=== PATIENT | male | born 1970 | race Caucasian/White ===

== ENCOUNTER 2019-04-18 11:19 | Emergency (ER) | payer BC ==
--- NOTE | 2019-04-18 13:13 | EDM.PDOC ---
ED HPI GENERAL MEDICAL PROBLEM - General Chief Complaint: Eye Problems Stated Complaint: EYE IRRITATION,POSS SOMETHING IN EYE Time Seen by Provider: 04/18/19 13:00 Source of Information: Reports: Patient, Family History Limitations: Reports: No Limitations - History of Present Illness INITIAL COMMENTS - FREE TEXT/NARRATIVE: 48-year-old male presents to the ED with a diffusely erythematous left conjunctiva for the last week. States his daughter had pinkeye about 3 weeks ago and got better after 4 days of they believe Cipro ophthalmic drops. He's been using these the last 2 days without any relief. The eye is crusted and stuck shut in the morning and he has to wipe away mucus several times during the day as it blurs his visual field in the left eye. He feels a foreign body sensation in the eye particularly up underneath his left eyelid. Symptoms started about a week ago. No associated upper respiratory tract infection. States the eyes not excessively tearful. Does not excessively photosensitive to light but is mildly so. He ascribes the discomfort as a bit of a burning discomfort versus an itch. Onset: Gradual Onset Date: 04/11/19 Duration: Day(s):, Constant, Getting Worse Location: Reports: Face Quality: Reports: Ache (Left, high involving the conjunctiva.), Burning, Other ( Diffuse erythema with exudate right eye for a week) Severity: Moderate Improves with: Reports: None Worsens with: Reports: None Context: Reports: Sick Contact (Possibly. His daughter had pinkeye 3 weeks ago.) . Denies: Activity, Exercise, Lifting, Trauma, Other Associated Symptoms: Denies: No Other Symptoms, Confusion, Chest Pain, Cough, cough w sputum, Diaphoresis, Fever/Chills, Headaches, Loss of Appetite, Malaise , Nausea/Vomiting, Shortness of Breath, Syncope Treatments WRAPPER CASHIER: Reports: Other (see below) (None.) - Related Data Allergies Allergy/AdvReac Type Severity Reaction Status Date / Time ragweed pollen Allergy Cannot Verified 04/18/19 11:44 Remember Home Meds: Home Meds Gentamicin [Garamycin 0.3% Ophth Soln] 5 ml EYEBOTH TID #1 bottle 04/18/19 [Rx] Lisinopril 20 mg PO DAILY 04/18/19 [History] Meloxicam 15 mg PO DAILY 04/18/19 [History] Metoprolol Tartrate 50 mg PO DAILY 04/18/19 [History] Metoprolol Tartrate 100 mg PO BEDTIME 04/18/19 [History] Omeprazole 40 mg PO DAILY 04/18/19 [History] Past Medical History Cardiovascular History: Reports: High Cholesterol, Hypertension Gastrointestinal History: Reports: GERD Musculoskeletal History: Reports: Arthritis Social & Family History - Tobacco Use Smoking Status *Q: Never Smoker - Caffeine Use Caffeine Use: Reports: Coffee, Soda - Recreational Drug Use Recreational Drug Use: No - Living Situation & Occupation Living situation: Reports: Occupation: Employed ED ROS ENT - Review of Systems Review Of Systems: See Below Constitutional: Denies: Fever, Chills, Malaise, Weakness, Fatigue, Decreased Appetite, Weight Loss HEENT: Reports: Eye Discharge (Left), Eye Pain. Denies: Contact Lenses, Glasses Respiratory: Reports: No Symptoms ( left for the last week) Cardiovascular: Reports: No Symptoms Endocrine: Reports: No Symptoms GI/Abdominal: Reports: No Symptoms : Reports: No Symptoms Musculoskeletal: Reports: Other Skin: Reports: No Symptoms (Has arthritis.) Neurological: Reports: No Symptoms Psychiatric: Reports: No Symptoms ED EXAM, ENT - Physical Exam Exam: See Below Exam Limited By: No Limitations General Appearance: Alert, WD/WN, No Apparent Distress, Other (Left eye is obviously very erythematous i.e. the conjunctivae severely injected.) Eye Exam: Left Eye: Conjunctival Injection (Severe. Nothing on the right side), Normal Fundi, Bilateral Eye: Corneal Abrasion (Slit-lamp examination reveals no corneal abrasion on the left side), Periorbital Changes (No periorbital changes. ), PERRL, Other (Does have some mucopurulent discharge medial canthus of the eye yellowish in color.) Ears: Normal TMs Nose: Normal Inspection Mouth/Throat: Normal Inspection, Normal Gums, Normal Teeth Head: Atraumatic, Normocephalic Course - Vital Signs Last Recorded V/S: Last Vital Signs Temp Pulse 71 04/18/19 11:36 Resp 18 04/18/19 11:36 BP 164/96 H 04/18/19 11:36 Pulse Ox 99 04/18/19 11:36 - Radiology Interpretation Free Text/Narrative:: 48-year-old male presents to the ED with a diffusely erythematous left eye for the last week. States he feels like there is something up underneath his left upper eyelid i.e. foreign body sensation but can't recollect getting anything in his eye. His daughter had pinkeye and improved with 4 days of op thalamic drops about 3 weeks ago. He's been using these drops which we believe are Cipro for the last 2 days without any improvement. He states the eye is usually mucopurulent and crusted shut in the mornings when he awakens. It is not excessively tearful but is mildly sensitive to light. It's more of the pressure up under the eyelid that bothers him the most. I did invert the upper eyelid and no foreign bodies were identified but he has a cobblestoning appearance of the upper eyelid due to inflammation. Similarly slit lamp exam revealed a normal cornea with known dendritic changes or foreign bodies identified. Appears to be a conjunctivitis. It's unclear whether or not this could be adenovirus infection although is usually spreads to the other eye fairly quickly. Plan I'm going to place the patient on Garamycin ophthalmic drops 2 drops to the left eye 4 times daily for the next 4 days. If not markedly improved he requires follow-up with an press room supervisor or environmental analyst. More or less clarify that his infection is indeed viral in origin. There is clinically no evidence of glaucoma. Departure - Departure Time of Disposition: 13:10 Disposition: Home, Self-Care 01 Condition: Fair Clinical Impression: Bacterial conjunctivitis of left eye - Discharge Information *PRESCRIPTION DRUG MONITORING PROGRAM REVIEWED*: Not Applicable *COPY OF PRESCRIPTION DRUG MONITORING REPORT IN PATIENT ELISHA: Not Applicable Prescriptions: Gentamicin [Garamycin 0.3% Oph Soln] 5 ml EYEBOTH TID #1 bottle Instructions: Bacterial Conjunctivitis, [id number] Referrals: Gayla Rojas PA-C [Primary Care Provider] - Forms: ED Department Discharge Additional Instructions: Evaluation in the emergency room today in regards to red eye on the left side for the last week. Excessive discharge with iron added in the mornings. Daughter had pinkeye 3 weeks ago. Examination with slit lamp shows no corneal abrasions and no foreign bodies in the eye. Appears to be a infection either from viral or bacterial origin. Since her so much debris and discharge from the eye I would be suspicious that it is bacterial in origin. Suggest treatment to be Garamycin antibiotic eyedrops--2 drops to the left eye 4 times daily for the next 4 days to clear up infection. If not better then follow-up is indicated with one of the local environmental analyst. The adenovirus infection which can last up to 3 weeks however usually affects both eyes.
== END 2019-04-18 13:20 | disposition home or self-care (01) ==
LOC: JD.ED 11:19
DX: H10.9 Unspecified conjunctivitis (principal); B96.89 Other specified bacterial agents as the cause of diseases classified elsewhere; E78.00 Pure hypercholesterolemia, unspecified; I10 Essential (primary) hypertension; K21.9 Gastro-esophageal reflux disease without esophagitis; Z88.8 Allergy status to other drugs, medicaments and biological substances; Z79.899 Other long term (current) drug therapy
CPT/HCPCS: 99283

== ENCOUNTER 2019-05-05 06:54 | Day surgery (SDC) | payer BC ==
[~2019-05-05 06:54] MED LIST: Lactated Ringers 1,000 ML IV SCH; Lidocaine 1%/Sod Bicarbonate in NS 8.4% 1 ML Syringe IDERM PRN; Sodium Chloride 0.9% 10 ML Syringe FLUSH PRN
[2019-05-05] MEDS ORDERED: Lidocaine 1% 4 ML ONE (07:08)
[2019-05-05] MEDS ORDERED: Propofol 200 MG/20 ML SDV ONE (07:09)
[2019-05-05] MEDS ORDERED: Midazolam 1 MG/ML 2 ML SDV ONE (07:09)
[2019-05-05] MEDS ORDERED: fentaNYL 100 MCG/2 ML SDV ONE (07:09)
--- NOTE | 2019-05-05 07:23 | PCM.PREANE ---
Preanesthetic Assessment - Procedure Proposed Procedure: diag egd screen colon - Anesthesia/Transfusion/Family Hx Anesthesia History: Prior Anesthesia Without Reaction Family History of Anesthesia Reaction: No Transfusion History: Prior Transfusion Without Reaction - Review of Systems General: No Symptoms Pulmonary: No Symptoms Cardiovascular: No Symptoms Gastrointestinal: No Symptoms Neurological: No Symptoms Other: Reports: None - Physical Assessment NPO Status Date: 05/05/19 (0400) NPO Status Time: 04:00 Pulse: 78 O2 Sat by Pulse Oximetry: 95 Respiratory Rate: 16 Blood Pressure: 134/90 Temperature: 97.7 F Height: 5 ft 6 in Weight: 103.192 kg ASA Class: 2 Mental Status: Alert & Oriented x3 Airway Class: Mallampati = 1 Dentition: Reports: Normal Dentition Thyro-Mental Finger Breadths: 3 Mouth Opening Finger Breadths: 3 ROM/Head Extension: Full Lungs: Clear to Auscultation, Normal Respiratory Effort Cardiovascular: Regular Rate, Regular Rhythm - Allergies Allergies/Adverse Reactions: Allergies Allergy/AdvReac Type Severity Reaction Status Date / Time No Known Allergies Allergy Verified 05/04/19 14:13 - Blood Blood Available: No - Anesthesia Plan Beta Meg: Metoprolol Med Last Dose Date: 05/03/19 Med Last Dose Time: 21:00 - Acknowledgements Anesthesia Type Planned: MAC Pt an Appropriate Candidate for the Planned Anesthesia: Yes Alternatives and Risks of Anesthesia Discussed w Pt/Guardian: Yes Pt/Guardian Understands and Agrees with Anesthesia Plan: Yes PreAnesthesia Questionnaire HEENT History: Reports: Impaired Vision Cardiovascular History: Reports: High Cholesterol, Hypertension Respiratory History: Reports: None Gastrointestinal History: Reports: GERD, Other (See Below) Other Gastrointestinal History: difficultly swallowing Genitourinary History: Reports: None PRINCIPAL LIBRARIAN History: Reports: None Musculoskeletal History: Reports: Arthritis Neurological History: Reports: Headaches, Chronic, Migraines Psychiatric History: Reports: None Endocrine/Metabolic History: Reports: None, Obesity/BMI 30+ Hematologic History: Reports: None Immunologic History: Reports: None Oncologic (Cancer) History: Reports: None Other Dermatologic History: skin grafting - Past Surgical History Head Surgeries/Procedures: Reports: None HEENT Surgical History: Reports: None Cardiovascular Surgical History: Reports: None Respiratory Surgical History: Reports: None GI Surgical History: Reports: None Female Surgical History: Reports: None Male Surgical History: Reports: None Endocrine Surgical History: Reports: None Neurological Surgical History: Reports: None Musculoskeletal Surgical History: Reports: None Oncologic Surgical History: Reports: None Dermatological Surgical History: Reports: Skin Graft - SUBSTANCE USE Smoking Status *Q: Never Smoker Tobacco Use Within Last Twelve Months: No Second Hand Smoke Exposure: No Days Per Week of Alcohol Use: 2 Number of Drinks Per Day: 2 Total Drinks Per Week: 4 Recreational Drug Use History: No - HOME MEDS Home Medications: Home Meds Lisinopril 20 mg PO DAILY 04/18/19 [History] Meloxicam 15 mg PO DAILY 04/18/19 [History] Metoprolol Tartrate 50 mg PO QAM 04/18/19 [History] Metoprolol Tartrate 100 mg PO BEDTIME 04/18/19 [History] Omeprazole 40 mg PO DAILY 04/18/19 [History] - CURRENT (IN HOUSE) MEDS Current Meds: Current Medications Lactated Ringer's (Ringers, Lactated) 1,000 mls @ 125 mls/hr IV ASDIRECTED ADA Stop: 05/05/19 23:00 Lidocaine/Sodium Bicarbonate (Buffered Lidocaine 1% In Ns 8.4%) 0.25 ml IDERM ONETIME PRN PRN Reason: Prior to IV Start Stop: 05/05/19 18:00 Sodium Chloride (Saline Flush) 10 ml FLUSH ASDIRECTED PRN PRN Reason: Keep Vein Open Stop: 05/05/19 18:00 Discontinued Medications Fentanyl (Sublimaze) Confirm Administered Dose 100 mcg .ROUTE .STK-MED ONE Stop: 05/05/19 07:10 Lidocaine HCl (Xylocaine-Mpf 1%) Confirm Administered Dose 4 mls @ as directed .ROUTE .STK-MED ONE Stop: 05/05/19 07:09 Midazolam HCl (Versed 1 Mg/Ml) Confirm Administered Dose 2 mg .ROUTE .STK-MED ONE Stop: 05/05/19 07:10 Propofol (Diprivan 20 Ml) Confirm Administered Dose 400 mg .ROUTE .STK-MED ONE Stop: 05/05/19 07:10
--- NOTE | 2019-05-05 08:42 | PCM48HPAN ---
Post Anesthesia Note - EVALUATION WITHIN 48HRS OF ANESTHETIC Vital Signs in Normal Range: Yes Patient Participated in Evaluation: Yes Respiratory Function Stable: Yes Airway Patent: Yes Cardiovascular Function Stable: Yes Hydration Status Stable: Yes Pain Control Satisfactory: Yes Nausea and Vomiting Control Satisfactory: Yes Mental Status Recovered: Yes Pulse Rate: 80 SaO2: 91 Resp Rate: 12 Temperature: 97.2 F Blood Pressure: 132/79
--- NOTE | 2019-05-05 13:47 | OR ---
DATE OF OPERATION: 05/05/2019 SURGEON: Domo Mancera MD PREOPERATIVE DIAGNOSIS: 1. Esophageal dysmotility. 2. Gastroesophageal reflux disease. 3. Colorectal cancer screening. POSTOPERATIVE DIAGNOSIS: 1. Esophageal dysmotility. 2. Gastroesophageal reflux disease. 3. Colorectal cancer screening. 4. Colon polyps. 5. Question of Cortés esophagus. PROCEDURE: EGD with biopsies and colonoscopy with polypectomy x3. PATHOLOGY: 1. Duodenum. 2. Antrum. 3. Body. 4. Fundus of the stomach. 5. GE junction. 6. Distal esophagus. 7. Cecal polyps x2. 8. Descending colon polyp. FINDINGS: He had some salmon-pink mucosa at the GE junction. I also noted 3 polyps, 2 in the cecum and 1 in the descending colon. These were all diminutive and removed entirely with a biopsy forceps. I did not note diverticulosis. He has no evidence of hiatal hernia. DISPOSITION: Stable at the end of the procedure. ESTIMATED BLOOD LOSS: Minimal. COMPLICATIONS: None. INDICATIONS: Kai is a 48-year-old male who has never had a colonoscopy. He reported to my office with complaints of esophageal dysmotility. He is having difficulty swallowing solids and liquids. The patient has had a swallow study, which shows dysmotility which has not been yet further characterized. He also complains of a longstanding history of gastroesophageal reflux disease. He is booked for screening colonoscopy and an EGD for diagnosis. He is fully informed of the major risks of the procedure. These include, but are not limited to perforation of the colon, bleeding, perforation of the GI tract, further surgery, risks of anesthesia, aspiration, laryngeal spasm, and many others. He gave informed consent of what was done. DESCRIPTION OF PROCEDURE: Kai was brought to the gastro suite and placed in a left lateral decubitus position. A bite block was placed. He was given monitored anesthesia. I introduced the endoscope into the upper esophagus. I advanced the scope keeping the lumen in view at all times with gentle forward pressure. I entered the stomach and flexed the scope into the duodenum. I passed the scope to the 4th portion of the duodenum. I biopsied the duodenum in 4 random locations. I found no loss of villous architecture. There were no ulcers. I withdrew the scope in the antrum. I biopsied the antrum, body, and fundus passing this for H. pylori testing as well. I found no gastric ulcerations. No hiatal hernia was identified on retroflex. There was no apparent mucosal lesion. I withdrew the scope in the esophagus and biopsied an area of salmon-pink mucosa at the GE junction. There was a very short segment of salmon-pink mucosa. I biopsied circumferentially in 6 locations. I then biopsied the distal esophagus. I evacuated the air from the stomach and rechecked for any bleeding, there was none. I then inspected the entirety of the esophagus. There were no mucosal lesions of the esophagus and no strictures as far as I could identify. At the end of this portion of the procedure, the scope was withdrawn. At this point, I turned my attention to the colonoscopy. Digital rectal exam was performed with copious lubrication. I introduced the colonoscope into the rectum. I advanced the scope with gentle forward pressure to the cecum, keeping the lumen in view at all times. I documented the cecum photographically. I found 2 diminutive polyps in the cecum. Both of these were removed in their entirety with a biopsy forceps. Thorough careful inspection of the entirety of the mucosa of the colon demonstrated an additional polyp in the descending colon. There was no diverticulosis. He had an excellent bowel prep. The exam lasted more than 6 minutes. At the end of the procedure, the scope was withdrawn in its entirety. Air was evacuated on the way out. PLAN: I will see him in the office in 2 to 3 weeks to discuss results of his pathology. I will also arrange for a consult with his institution librarian to further characterize his esophageal dysmotility with an esophageal manometry study. OPERATION PERFORMED: ANESTHESIA: MMODAL /[id number]
== END 2019-05-05 09:18 | disposition home or self-care (01) ==
LOC: JD.SDS 06:54
PROVIDERS: ATTEND Surgery
DX: Z12.11 Encounter for screening for malignant neoplasm of colon (principal); D12.0 Benign neoplasm of cecum; D12.4 Benign neoplasm of descending colon; K21.0 Gastro-esophageal reflux disease with esophagitis; K29.50 Unspecified chronic gastritis without bleeding; B96.81 Helicobacter pylori [H. pylori] as the cause of diseases classified elsewhere; K22.4 Dyskinesia of esophagus; K52.9 Noninfective gastroenteritis and colitis, unspecified; I10 Essential (primary) hypertension; E78.00 Pure hypercholesterolemia, unspecified; M19.90 Unspecified osteoarthritis, unspecified site; G43.909 Migraine, unspecified, not intractable, without status migrainosus; R06.83 Snoring; E66.9 Obesity, unspecified; Z68.38 Body mass index [BMI] 38.0-38.9, adult; Z79.899 Other long term (current) drug therapy
CPT/HCPCS: 00731; J2001; J2250; J2704; J3010; J7120

== ENCOUNTER 2019-12-04 13:28 | Emergency (ER) | payer BC ==
[2019-12-04] MEDS ORDERED: Sodium Chloride 0.9% 10 ML Syringe FLUSH PRN (14:05)
--- NOTE | 2019-12-04 14:31 | EDM.PDOC ---
ED HPI GENERAL MEDICAL PROBLEM - General Chief Complaint: Diabetic Complaint Stated Complaint: HIGH BLOOD SUGAR Time Seen by Provider: 12/04/19 13:56 Source of Information: Reports: Patient History Limitations: Reports: No Limitations - History of Present Illness INITIAL COMMENTS - FREE TEXT/NARRATIVE: Patient is a 49-year-old male who presents with complaints of high blood glucose. He states that he was seen at the clinic in [facility] yesterday for increased thirst, increased urination, and increased fatigue over the last couple months. He states that he received a phone call from the clinic today stating that his blood glucose was significantly elevated and that he should come to the ER for evaluation and treatment. Patient denies any recent abdominal pain, vomiting, or diarrhea. He has had no recent unexplained weight loss. Patient's past medical history is significant for hypertension for which she takes metoprolol. He does state that he had a "slight heart attack a long time ago". - Related Data Allergies Allergy/AdvReac Type Severity Reaction Status Date / Time No Known Allergies Allergy Verified 12/04/19 13:41 Home Meds: Home Meds Meloxicam 15 mg PO DAILY 04/18/19 [History] Metoprolol Tartrate 100 mg PO DAILY 04/18/19 [History] Omeprazole 40 mg PO DAILY 04/18/19 [History] metFORMIN HCl [Metformin HCl] 500 mg PO DAILY #30 tablet 12/04/19 [Rx] Past Medical History HEENT History: Reports: Impaired Vision Cardiovascular History: Reports: High Cholesterol, Hypertension, [place] Respiratory History: Reports: None Gastrointestinal History: Reports: GERD, Other (See Below) Other Gastrointestinal History: difficultly swallowing Genitourinary History: Reports: None HYDRAULIC PLUMBER HELPER History: Reports: None Musculoskeletal History: Reports: Arthritis Neurological History: Reports: Headaches, Chronic, Migraines Psychiatric History: Reports: None Endocrine/Metabolic History: Reports: None, Obesity/BMI 30+ Hematologic History: Reports: None Immunologic History: Reports: None Oncologic (Cancer) History: Reports: None Other Dermatologic History: skin grafting - Past Surgical History Head Surgeries/Procedures: Reports: None HEENT Surgical History: Reports: None Cardiovascular Surgical History: Reports: None Respiratory Surgical History: Reports: None GI Surgical History: Reports: None Male Surgical History: Reports: None Endocrine Surgical History: Reports: None Neurological Surgical History: Reports: None Musculoskeletal Surgical History: Reports: None Oncologic Surgical History: Reports: None Dermatological Surgical History: Reports: Skin Graft Social & Family History - Tobacco Use Smoking Status *Q: Never Smoker Second Hand Smoke Exposure: No - Caffeine Use Caffeine Use: Reports: None - Recreational Drug Use Recreational Drug Use: No - Living Situation & Occupation Living situation: Reports: Occupation: Employed ED ROS GENERAL - Review of Systems Review Of Systems: See Below Constitutional: Reports: Fatigue. Denies: Weight Loss HEENT: Reports: No Symptoms Respiratory: Reports: No Symptoms Endocrine: Reports: Fatigue, High Glucose, Polydypsia, Polyuria GI/Abdominal: Reports: No Symptoms. Denies: Abdominal Pain, Nausea, Vomiting : Reports: No Symptoms Musculoskeletal: Reports: No Symptoms Skin: Reports: No Symptoms Neurological: Reports: No Symptoms Psychiatric: Reports: No Symptoms Hematologic/Lymphatic: Reports: No Symptoms Immunologic: Reports: No Symptoms ED EXAM GENERAL NO PERIP PULSE - Physical Exam Exam: See Below Exam Limited By: No Limitations General Appearance: Alert, WD/WN, No Apparent Distress Respiratory/Chest: No Respiratory Distress, Lungs Clear, Normal Breath Sounds, No Accessory Muscle Use, Chest Non-Tender Cardiovascular: Normal Peripheral Pulses, Regular Rate, Rhythm, No Edema, No Gallop, No JVD, No Murmur, No Rub GI/Abdominal: Normal Bowel Sounds, Soft, Non-Tender, No Organomegaly, No Distention, No Abnormal Bruit, No Mass Neurological: Alert, Oriented, CN II-XII Intact, Normal Cognition, Normal Gait, Normal Reflexes, No Motor/Sensory Deficits Psychiatric: Normal Affect, Normal Mood Skin Exam: Warm, Dry, Intact, Normal Color, No Rash Course - Vital Signs Last Recorded V/S: Last Vital Signs Temp 98 F 12/04/19 13:38 Pulse 76 12/04/19 13:38 Resp 16 12/04/19 13:38 BP 179/103 H 12/04/19 13:38 Pulse Ox 95 12/04/19 13:38 - Orders/Labs/Meds Orders: Active Orders 24 hr Category Date Time Status Blood Glucose Check, Bedside [RC] ONETIME Care 12/04/19 16:00 Active Peripheral IV Care [RC] . DIRECTED Care 12/04/19 14:05 Active Sodium Chloride 0.9% [Normal Saline] 1,000 ml Med 12/04/19 14:45 Active IV ASDIRECTED Sodium Chloride 0.9% [Saline Flush] Med 12/04/19 14:05 Active 10 ml FLUSH ASDIRECTED PRN Peripheral IV Insertion Adult [OM.PC] Stat Oth 12/04/19 14:04 Ordered Medication Orders Sodium Chloride (Normal Saline) 1,000 mls @ 999 mls/hr IV ASDIRECTED ADA Last Admin: 12/04/19 15:06 Dose: 999 mls/hr Sodium Chloride (Saline Flush) 10 ml FLUSH ASDIRECTED PRN PRN Reason: Keep Vein Open Last Admin: 12/04/19 14:10 Dose: 10 ml Labs: Laboratory Tests 12/04/19 12/04/19 12/04/19 Range/Units 14:12 14:12 14:12 WBC 6.99 (4.23-9.07) K/mm3 RBC 4.54 L (4.63-6.08) M/mm3 Hgb 13.8 (13.7-17.5) gm/dl Hct 40.9 (40.1-51.0) % MCV 90.1 (79.0-92.2) fl MCH 30.4 (25.7-32.2) pg MCHC 33.7 (32.2-35.5) g/dl RDW Std Deviation 42.3 (35.1-43.9) fL Plt Count 165 (163-337) K/mm3 MPV 11.6 (9.4-12.3) fl Neut % (Auto) 65.0 (34.0-67.9) % Lymph % (Auto) 24.0 (21.8-53.1) % Emanuel % (Auto) 6.9 (5.3-12.2) % Eos % (Auto) 3.0 (0.8-7.0) Baso % (Auto) 0.4 (0.1-1.2) % Neut # (Auto) 4.54 (1.78-5.38) K/mm3 Lymph # (Auto) 1.68 (1.32-3.57) K/mm3 Emanuel # (Auto) 0.48 (0.30-0.82) K/mm3 Eos # (Auto) 0.21 (0.04-0.54) K/mm3 Baso # (Auto) 0.03 (0.01-0.08) K/mm3 Sodium 133 L (136-145) mEq/L Potassium 3.7 (3.5-5.1) mEq/L Chloride 96 L (98-107) mEq/L Carbon Dioxide 23 (21-32) mEq/L Anion Gap 17.7 H (5-15) BUN 17 (7-18) mg/dL Creatinine 1.3 (0.7-1.3) mg/dL Est Cr Clr Drug Dosing 60.66 mL/min Estimated GFR (MDRD) 58 (>60) mL/min BUN/Creatinine Ratio 13.1 L (14-18) Glucose 423 H (74-106) mg/dL POC Glucose (70-105) mg/dL Hemoglobin A1c 10.90 H (4.50-6.20) % Calcium 8.6 (8.5-10.1) mg/dL Total Bilirubin 0.3 (0.2-1.0) mg/dL AST 18 (15-37) U/L ALT 67 H (16-63) U/L Alkaline Phosphatase 95 (46-116) U/L Total Protein 7.2 (6.4-8.2) g/dl Albumin 3.7 (3.4-5.0) g/dl Globulin 3.5 gm/dL Albumin/Globulin Ratio 1.1 (1-2) Urine Color (Yellow) Urine Appearance (Clear) Urine pH (5.0-8.0) Ur Specific [place] (1.005-1.030) Urine Protein (Negative) Urine Glucose (UA) (Negative) Urine Ketones (Negative) Urine Occult Blood (Negative) Urine Nitrite (Negative) Urine Bilirubin (Negative) Urine Urobilinogen (0.2-1.0) Ur Leukocyte Esterase (Negative) Urine RBC (0-5) /hpf Urine WBC (0-5) /hpf Ur Squamous Epith Cells (0-5) /hpf Urine Bacteria (FEW) /hpf Urine Mucus (FEW) /hpf 12/04/19 12/04/19 Range/Units 14:45 16:02 WBC (4.23-9.07) K/mm3 RBC (4.63-6.08) M/mm3 Hgb (13.7-17.5) gm/dl Hct (40.1-51.0) % MCV (79.0-92.2) fl MCH (25.7-32.2) pg MCHC (32.2-35.5) g/dl RDW Std Deviation (35.1-43.9) fL Plt Count (163-337) K/mm3 MPV (9.4-12.3) fl Neut % (Auto) (34.0-67.9) % Lymph % (Auto) (21.8-53.1) % Emanuel % (Auto) (5.3-12.2) % Eos % (Auto) (0.8-7.0) Baso % (Auto) (0.1-1.2) % Neut # (Auto) (1.78-5.38) K/mm3 Lymph # (Auto) (1.32-3.57) K/mm3 Emanuel # (Auto) (0.30-0.82) K/mm3 Eos # (Auto) (0.04-0.54) K/mm3 Baso # (Auto) (0.01-0.08) K/mm3 Sodium (136-145) mEq/L Potassium (3.5-5.1) mEq/L Chloride (98-107) mEq/L Carbon Dioxide (21-32) mEq/L Anion Gap (5-15) BUN (7-18) mg/dL Creatinine (0.7-1.3) mg/dL Est Cr Clr Drug Dosing mL/min Estimated GFR (MDRD) (>60) mL/min BUN/Creatinine Ratio (14-18) Glucose (74-106) mg/dL POC Glucose 260 H (70-105) mg/dL Hemoglobin A1c (4.50-6.20) % Calcium (8.5-10.1) mg/dL Total Bilirubin (0.2-1.0) mg/dL AST (15-37) U/L ALT (16-63) U/L Alkaline Phosphatase (46-116) U/L Total Protein (6.4-8.2) g/dl Albumin (3.4-5.0) g/dl Globulin gm/dL Albumin/Globulin Ratio (1-2) Urine Color Yellow (Yellow) Urine Appearance Clear (Clear) Urine pH 5.5 (5.0-8.0) Ur Specific [place] 1.020 (1.005-1.030) Urine Protein Negative (Negative) Urine Glucose (UA) 2+ H (Negative) Urine Ketones Negative (Negative) Urine Occult Blood Negative (Negative) Urine Nitrite Negative (Negative) Urine Bilirubin Negative (Negative) Urine Urobilinogen 0.2 (0.2-1.0) Ur Leukocyte Esterase Negative (Negative) Urine RBC 0-5 (0-5) /hpf Urine WBC 0-5 (0-5) /hpf Ur Squamous Epith Cells Not seen (0-5) /hpf Urine Bacteria Occasional (FEW) /hpf Urine Mucus Not seen (FEW) /hpf Meds: Medications Generic Name Dose Route Start Last Admin Trade Name Freq PRN Reason Stop Dose Admin Sodium Chloride 1,000 mls @ 999 mls/hr 12/04/19 14:45 12/04/19 15:06 Normal Saline IV 999 mls/hr ASDIRECTED ADA Administration Sodium Chloride 10 ml 12/04/19 14:05 12/04/19 14:10 Saline Flush FLUSH 10 ml ASDIRECTED PRN Administration Keep Vein Open Discontinued Medications Generic Name Dose Route Start Last Admin Trade Name Freq PRN Reason Stop Dose Admin Insulin Human Regular 8 unit 12/04/19 14:44 12/04/19 15:04 Humulin R SUBCUT 12/04/19 14:45 8 unit ONETIME ONE Administration - Re-Assessments/Exams Free Text/Narrative Re-Assessment/Exam: 12/04/19 16:10 Patient's hematology revealed a sodium of 133, chloride 96, anion gap 17.7, glucose 423, and hemoglobin A1c of 10.9. Urinalysis was negative for any ketones but did have 2+ glucose. Based on these results, patient is diagnosed with diabetes mellitus type 2. Patient received 1 L of IV normal saline as well as 8 units of subcutaneous insulin. Bedside blood glucose one hour later was 260. Patient has been started on metformin 500 mg once daily at dinnertime. I discussed with him in detail that there will likely be additions to this treatment plan as well as lifestyle modifications and that close follow- up with a primary care provider is essential. He has also been provided a prescription for a blood glucose monitor, 90 test strips, and 90 lancets. It is recommended that he check his blood glucose is 3 times daily and keep a log to take with him to his primary care provider. I did also discuss with him that he would benefit from a consult with a dietitian and music educator. All questions were answered at this time. Discharge instructions as noted. Departure - Departure Time of Disposition: 16:07 Disposition: Home, Self-Care 01 Condition: Fair Clinical Impression: Diabetes mellitus Qualifiers: Diabetes mellitus type: type 2 Diabetes mellitus exterminator helper termite insulin use: without exterminator helper termite use Diabetes mellitus complication status: without complication Qualified Code(s): E11.9 - Type 2 diabetes mellitus without complications - Discharge Information *PRESCRIPTION DRUG MONITORING PROGRAM REVIEWED*: No *COPY OF PRESCRIPTION DRUG MONITORING REPORT IN PATIENT ELISHA: No Prescriptions: metFORMIN HCl [Metformin HCl] 500 mg PO DAILY #30 tablet Instructions: Type 2 Diabetes Mellitus, Diagnosis, Adult, [id number] Referrals: PCP,None [Primary Care Provider] - Loren Medina NP [Ordering Only Provider] - Forms: ED Department Discharge Additional Instructions: You were seen in the emergency department today for an elevated blood glucose with symptoms of increased thirst, increased urination, and fatigue for the last couple months. Your blood glucose when the ER today was 423 which was a nonfasting blood glucose. Your A1c, which is an indicator of your blood sugars for the last 3 months, was 10.9. An ideal A1c is less than 6.5. There were no ketones in your urine and your other lab work was normal. While in the ER, you received 1 L of IV fluids and 8 units of subcutaneous insulin to bring down this initial blood glucose. Your blood glucose after this treatment was 260. You will be started on metformin 500 mg once daily at suppertime. As we discussed, this is just a starting point for your diabetes management. You will likely be started on additional medications and/or have this dose increased. A prescription has also been written for a blood glucose monitor, test strips, and lancets. I recommend that you check your blood sugar first thing in the morning, 2 hours after a meal, and at bedtime. Keep a log of these readings to take to your primary care provider. First thing Friday morning, I recommend that she call and schedule an appointment with your primary care provider. It is also recommended that you limit your carb intake and partake in daily exercise. You would benefit from a referral to a dietitian and music educator. You may discuss these options with your primary care provider. If you experience any new or worsening symptoms of concern, please do not hesitate to return to the emergency department. Sepsis Event Note - Evaluation Sepsis Screening Result: No Definite Risk - Focused Exam Vital Signs: Vital Signs Temp Pulse Resp BP Pulse Ox 12/04/19 13:38 98 F 76 16 179/103 H 95 Date Exam was Performed: 12/04/19 Time Exam was Performed: 16:28 - My Orders Last 24 Hours: My Active Orders 12/04/19 14:04 Peripheral IV Insertion Adult [OM.PC] Stat 12/04/19 14:05 Peripheral IV Care [RC] . DIRECTED Sodium Chloride 0.9% [Saline Flush] 10 ml FLUSH ASDIRECTED PRN 12/04/19 14:45 Sodium Chloride 0.9% [Normal Saline] 1,000 ml IV ASDIRECTED 12/04/19 16:00 Blood Glucose Check, Bedside [RC] ONETIME - Assessment/Plan Last 24 Hours: My Active Orders 12/04/19 14:04 Peripheral IV Insertion Adult [OM.PC] Stat 12/04/19 14:05 Peripheral IV Care [RC] . DIRECTED Sodium Chloride 0.9% [Saline Flush] 10 ml FLUSH ASDIRECTED PRN 12/04/19 14:45 Sodium Chloride 0.9% [Normal Saline] 1,000 ml IV ASDIRECTED 12/04/19 16:00 Blood Glucose Check, Bedside [RC] ONETIME
[2019-12-04] MEDS ORDERED: Insulin Regular, Human 100 Units/ML 3 ML Vial SUBCUT ONE (14:44)
[2019-12-04] MEDS ORDERED: Sodium Chloride 0.9% 1,000 ML IV SCH (14:45)
[2019-12-04 14:53] LABS: HEMOGLOBIN A1C 10.9 % (4.50-6.20)
== END 2019-12-04 16:25 | disposition home or self-care (01) ==
LOC: JD.ED 13:28
DX: E11.9 Type 2 diabetes mellitus without complications (principal); I10 Essential (primary) hypertension; I25.2 Old myocardial infarction; K21.9 Gastro-esophageal reflux disease without esophagitis; M19.90 Unspecified osteoarthritis, unspecified site; E66.9 Obesity, unspecified; Z68.37 Body mass index [BMI] 37.0-37.9, adult; Z79.84 Long term (current) use of oral hypoglycemic drugs; Z79.899 Other long term (current) drug therapy
CPT/HCPCS: 36415; 80053; 81001; 82962; 83036; 85025; 96360; 99283; J1815; J7030; 99284